=== PATIENT | male | born 1990 | race Caucasian/White ===

== ENCOUNTER 2017-03-18 12:55 | Emergency (ER) | payer MEDICAID ==
[~2017-03-18] VITALS: Ht 172.7 cm; Wt 54.4 kg
--- NOTE | 2017-03-18 14:26 | NUR ---
Patient discharged to home in stable conditon. Written and verbal after care instructions given. Patient verbalizes understanding of instructions.pt walks in steady gait.
== END 2017-03-18 14:30 | disposition home or self-care (01) ==
LOC: ER 12:55
DX: M25.531 Pain in right wrist (principal); K21.9 Gastro-esophageal reflux disease without esophagitis; M25.561 Pain in right knee; M25.551 Pain in right hip
CPT/HCPCS: 70450; 72170; 73110; 73564; 99284; A4663